=== PATIENT | male | born 1990 | race Caucasian/White ===

== ENCOUNTER 2016-10-23 00:50 | Emergency (ER) | payer SELFPAY ==
[2016-10-23 01:42] VITALS: TEMP 98.5; BMI 35.9
--- NOTE | 2016-10-23 02:12 | EDPRACDOC ---
- General Information Chief Complaint: Toothache Stated Complaint: ABSCESS TOOTH Time Seen by Provider: 10/23/16 01:26 Information Source: Patient Mode Of Arrival: Car Home Medications: Home Medications Amoxicillin [Amoxil] 500 mg PO TID #30 cap 05/30/14 Hydrocodone Bit/Acetaminophen [Lortab 5/325] 1 tab PO Q4H PRN #20 tab 05/30/14 Amoxicillin Trihydrate [Amoxicillin] 500 mg PO TID #30 tab 10/23/16 Meloxicam [Mobic] 7.5 mg PO BID #20 tab 10/23/16 Allergies/Adverse Reactions: Allergies Allergy/AdvReac Type Severity Reaction Status Date / Time No Known Allergies Allergy Verified 05/30/14 05:01 - History of Present Illness Onset: several days HPI: PT PRESENTS TODAY WITH RIGHT LOWER TOOTH PAIN X 2-3 DAYS. NO FEVER. NO OTHER SYMPTOMS. Reported Tooth Problem: 32 Pain Severity: Reports: Moderate Relevant History of: Reports: None Modifying Factors: improves with: Cold, Chewing Associated Signs and Symptoms: Reports: None ED Past Medical History - History Reviewed Yes Nurses notes reviewed and agree except as marked - Patient Medical History Psychological History: Denies: Depression Systemic History: Denies: Cancer - Social Medical History Smoking Status: Heavy tobacco smoker (5 or more cigarettes/day or daily pipe/ cigar) EDM Review of Systems - Review of Systems ROS Negative Except as Marked: Yes All systems reviewed and were negative except as marked Constitutional: No Symptoms Reported Eyes: No Symptoms Reported Ears: No Symptoms Reported Throat: No Symptoms Reported Nose: No Symptoms Reported Mouth: Tooth Pain Respiratory: No Symptoms Reported Cardiovascular: No Symptoms Reported Gastrointestinal: No Symptoms Reported Neurological: No Symptoms Reported Musculoskeletal: No Symptoms Reported Integumentary: No Symptoms Reported - Physical Exam Constitutional: Alert (Awake), No apparent distress Oriented to: Time, Person, Place Last recorded Vital Signs: Last Vital Signs Temp 98.5 F 10/23/16 01:00 Pulse 53 L 10/23/16 01:00 Resp 20 10/23/16 01:00 BP 170/107 H 10/23/16 01:00 Pulse Ox 99 10/23/16 01:00 Oxygen Pulse Oxygen Saturation 99 O2 Device Room Air Oxygen Flow Rate Fraction of Inspired Oxygen ( FIO2) - HEENT Head: Normal Eye Exam: Normal Oropharynx: Other (NOTED CAVITY TO TOOTH 32 W/OUT APPARENT INFECTION/SWELLING/ DISCHARGE) Tympanic Membrane: Normal ENT EAC: Normal Nose: No Symptoms Reported Neck: Normal, Denies Pain, Midline - Respiratory/Cardiovascular Respiratory: Normal - CTA Cardiovascular: Normal - GI Palpation: Normal Tenderness: Non tender - Musculoskeletal Back: Normal Extremities: Normal - Integumentary Skin: Normal Lymphatics: Normal - Neurologic Cerebellar: Normal Mood Description: Normal Thought: Coherent Perception: Normal ED Tooth Problem Exam - HEENT Face: Normal Teeth: Right: Molar-3 Lower (CAVITY) Gingiva: Normal Palate: Normal Mouth Range of Motion: Normal Sinuses: Normal Oropharynx: Normal Neck: Normal, Denies Pain, Midline - Additional Information NOTED HTN; PT DOES NOT HAVE ANY SYMPTOMS; EDUCATED TO FOLLOW UP. Decision Time to Discharge: 02:12 - Departure Disposition: Home Condition: Good Final Diagnosis: Dental caries Instructions: Dental Caries (ED) Education/Counseling Given To: Patient Education/Counseling Given Regarding: Diagnosis, Treatment, Follow Up Referrals: None,No Provider [Primary Care Provider] - One Week [facility] [NonStaff] - One Week Prescriptions: Amoxicillin Trihydrate [Amoxicillin] 500 mg PO TID #30 tab Meloxicam [Mobic] 7.5 mg PO BID #20 tab Additional Instructions: [facility] [phone]
[2016-10-23 02:29] VITALS: BP 148/99; PULSE 60
== END 2016-10-23 02:28 | disposition home or self-care (01) ==
LOC: ED 00:50
DX: K02.9 Dental caries, unspecified (principal)
CPT/HCPCS: 99283